=== PATIENT | male | born 1960 | race Caucasian/White ===

== ENCOUNTER 2018-01-08 09:32 | Emergency (ER) | payer OTHER ==
[2018-01-08 09:32] VITALS: BMI 34.7
[2018-01-08 09:47] VITALS: PULSE 94
--- NOTE | 2018-01-08 10:08 | C.PDOC ---
History Of Present Illness 57 year old male presents to ED for evaluation of right lower leg swelling and intermittent pain for the past week. Denies trauma, injury, or fall. Notes he ran out of his medications approximately 2 weeks ago. Otherwise, denies chest pain, shortness of breath, headache, or fever. Time Seen by Provider: 01/08/18 09:52 Chief Complaint (Nursing): Lower Extremity Problem/Injury History Per: Patient History/Exam Limitations: no limitations Onset/Duration Of Symptoms: Days Current Symptoms Are (Timing): Still Present Recent travel outside of the [place]: No Additional History Per: Patient Past Medical History Reviewed: Historical Data, Nursing Documentation, Vital Signs Vital Signs: Last Vital Signs Temp 98.6 F 01/08/18 12:55 Pulse 94 H 01/08/18 12:55 Resp 20 01/08/18 12:55 BP 163/98 H 01/08/18 12:55 Pulse Ox 96 01/08/18 12:55 - Medical History PMH: HTN Denies: Chronic Kidney Disease Family History: States: Unknown Family Hx - Social History Hx Tobacco Use: No Hx Alcohol Use: No Hx Substance Use: No - Immunization History Hx Tetanus Toxoid Vaccination: No Hx Influenza Vaccination: No Hx Pneumococcal Vaccination: No Review Of Systems Except As Marked, All Systems Reviewed And Found Negative. Constitutional: Negative for: Fever, Chills Musculoskeletal: Positive for: Leg Pain Neurological: Negative for: Weakness, Numbness Physical Exam - Physical Exam Appears: Non-toxic, No Acute Distress Skin: Normal Color, Warm, Dry Head: Atraumatic, Normacephalic Eye(s): bilateral: Normal Inspection Oral Mucosa: Moist Neck: Normal ROM, Supple Cardiovascular: Rhythm Regular, No Murmur Respiratory: Normal Breath Sounds, No Rales, No Rhonchi, No Wheezing Gastrointestinal/Abdominal: Soft, No Tenderness Extremity: Normal ROM, Pedal Edema (R > L), Calf Tenderness (R > L), Capillary Refill (less than 2 seconds), No Deformity Pulses: Left Dorsalis Pedis: Normal, Right Dorsalis Pedis: Normal Neurological/Psych: Oriented x3, Normal Speech, Normal Motor, Normal Sensation ED Course And Treatment - Laboratory Results Result Diagrams: 01/08/18 10:25 01/08/18 10:25 O2 Sat by Pulse Oximetry: 94 Medical Decision Making Medical Decision Making: Impression: 57 year old male with right lower leg pain and swelling for past few days. Patient noncompliant with medications, ran out 2 weeks ago. Plan: * Blood work * Urinalysis * Venous Duplex of right lower extremity * Clonidine, Norvasc, Metformin Right lower extremity doppler result shows possible ruptured cyst in the popliteal fossa with fluid in the calf. Case discussed with attending who agrees patient stable for discharge and nothing further in ER. Patient re-evaluated and resting comfortably in no distress. Discussed results with patient. There is no DVT on US. Advise patient to take analgesic, elevate extremity and rest. Rx refll provided. Patient instructed to follow up with PMD Disposition Counseled Patient/Family Regarding: Diagnosis, Need For Followup, Rx Given - Disposition Referrals: Urvashi Humphries MD [Staff Provider] - Disposition: HOME/ ROUTINE Disposition Time: 12:50 Condition: GOOD Additional Instructions: Los estudios muestran rotura de quiste a la pierna Mantenga la pierna elevada [place] dominique medicamentos segn lo prescrito Seguimiento en la clnica Prescriptions: Amlodipine/Valsartan [Amlodipine-Valsartan 10-160 mg] 1 each PO DAILY #60 tablet Aspirin [Adult Aspirin] 81 mg PO DAILY #60 tablet. 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 - Scribe Statement The provider has reviewed the documentation as recorded by the Scribe KP All medical record entries made by the Scribe were at my direction and personally dictated by me. I have reviewed the chart and agree that the record accurately reflects my personal performance of the history, physical exam, medical decision making, and the department course for this patient. I have also personally directed, reviewed, and agree with the discharge instructions and disposition.
[2018-01-08 10:29] LABS: BASO # 0.1 K/uL (0.0-0.2); BASO % 1.1 % (0.0-2.0); EOS # 1.7 K/uL (0.0-0.7); EOS % 15.1 % (0.0-4.0); LYMPH # 2.3 K/uL (1.0-4.3); LYMPH % 20.6 % (20.0-40.0); MEAN CORPUSCULAR HEMOGLOBIN 31.2 pg (27.0-31.0); MEAN CORPUSCULAR HGB CONC 34.7 g/dL (33.0-37.0); MEAN PLATELET VOLUME 8.3 fL (7.2-11.7); MONO # 0.6 K/uL (0.0-0.8); NEUT # 6.4 K/uL (1.8-7.0); NEUT % 58.2 % (50.0-75.0); RBC 4.81 Mil/uL (4.40-5.90); RED CELL DISTRIBUTION WIDTH 14.2 % (11.5-14.5)
[2018-01-08 10:37] LABS: INR 1.2; PROTHROMBIN TIME 13.3 SECONDS (9.7-12.2)
[2018-01-08 10:43] LABS: URINE BILIRUBIN NEGATIVE (NEGATIVE); URINE BLOOD NEGATIVE (NEGATIVE); URINE CLARITY Clear (Clear); URINE COLOR Yellow (YELLOW); URINE GLUCOSE (UA) NORMAL (Normal); URINE LEUKOCYTE ESTERASE NEG Leu/uL (Negative); URINE PROTEIN NEGATIVE (NEGATIVE)
[2018-01-08 10:46] LABS: ALB/GLOB RATIO 1.3 (1.0-2.1); ALT/SGPT 35 U/L (21-72); AST/SGOT 22 U/L (17-59); BLOOD UREA NITROGEN 19 mg/dL (9-20); GFR AFRICAN-AMERICAN > 60; GFR NON-AFRICAN AMERICAN > 60
[2018-01-08 10:55] LABS: B-TYPE NATRIURETIC PEPTIDE 491 pg/mL (0-900)
[2018-01-08 12:56] VITALS: BP 163/98; RESP 20; TEMP 98.6
[2018-01-08 15:41] VITALS: O2SAT 94
--- NOTE | 2018-01-09 13:07 | VASCLAB ---
Date of service: 01/08/2018 PROCEDURE: Right Lower Extremity Venous Duplex Exam. HISTORY: right calf pain PRIORS: None. TECHNIQUE: Right common femoral, femoral, popliteal and posterior tibial, peroneal and great saphenous veins were evaluated. Flow was assessed with color Doppler, compressibility, assessment of phasic flow and augmentation response. Report prepared by Karolyn Jacobs Yomi FINDINGS: RIGHT: 1. Common Femoral Vein: 1.1. Compressibility - Fully compressible: Thrombus - None: Flow - Phasic: Augmentation -Normal: Reflux - None. 2. Femoral Vein: 2.1. Compressibility - Fully compressible: Thrombus - None: Flow - Phasic: Augmentation -Normal: Reflux - None. 3. Popliteal Vein: 3.1. Compressibility - Fully compressible: Thrombus - None: Flow - Phasic: Augmentation -Normal: Reflux - None. 4. Posterior Tibial Vein: 4.1. Compressibility - Fully compressible: Thrombus - None: Flow - Phasic: Augmentation -Normal: Reflux - None. 5. Peroneal Vein: 5.1. Compressibility - Fully compressible: Thrombus - None: Flow - Phasic: Augmentation -Normal: Reflux - None. 6. Great Saphenous Vein: 6.1. Compressibility - Fully compressible: Thrombus -None: Flow - Phasic: Augmentation - Normal: Reflux - None. OTHER FINDINGS: There was a non vascular hypoechoic structure noted in the popliteal fossa extending through the mid calf, measuring approximately 4.2 cm X 7.6 cm., possible ruptured cyst. IMPRESSION: No evidence of deep or superficial vein thrombosis of the right lower extremity with excellent venous flow. Normal valve function noted of the right side. Normal venous flow noted in the left common femoral vein.
== END 2018-01-08 12:56 | disposition home or self-care (01) ==
LOC: C.ER 09:32
DX: M66.0 Rupture of popliteal cyst (principal); I10 Essential (primary) hypertension